=== PATIENT | female | born 1980 | race African-American/Black ===

== ENCOUNTER 2024-02-24 12:19 | Emergency (ER) | payer MEDICAID ==
[~2024-02-24] VITALS: Ht 172.7 cm; Wt 77.3 kg
[~2024-02-24 12:19] MED LIST: SULF1TAB3 PO
[2024-02-24 12:28] VITALS: BP 118/79; PULSE 80; RESP 16; TEMP 98.2; O2SAT 98
[2024-02-24] MEDS: HYDROCODONE/ACETAMINOPHEN 5-325 MG TABLET PO ONE (14:04)
[2024-02-24] MEDS: KETOROLAC TROMETHAMINE 30 MG/ML VIAL IM ONE (14:04)
[2024-02-24] MEDS ORDERED: HYDR-4072 PO (15:07)
== END 2024-02-24 14:25 | disposition home or self-care (01) ==
LOC: EMS 12:19
DX: K02.9 Dental caries, unspecified (principal); Z98.51 Tubal ligation status; Z88.0 Allergy status to penicillin; Z88.5 Allergy status to narcotic agent
CPT/HCPCS: 99283; 96372; J1885